=== PATIENT | female | born 1945 | race Caucasian/White ===

== ENCOUNTER 2020-06-10 19:29 | Inpatient (IN) | payer MEDICARE ==
[2020-06-10] MEDS ORDERED: Morphine 4 MG/ML VIAL ONE (20:32)
[2020-06-10] MEDS ORDERED: Ondansetron PF 4 MG/2 ML Vial ONE (20:32)
[2020-06-10 20:35] LABS: #Eosinphils 0.1 10x3/uL (0.0-0.5); #Monocytes 0.6 10x3/uL (0.0-1.1); #Neutrophils 5.6 10x3/uL (1.5-8.4); %Basophils 0.5 % (0.0-2.0); %Eosinophils 1.4 % (0.0-6.0); %Lymphocytes 19.4 % (18.0-47.0); %Monocytes 7.8 % (0.0-10.0); %Neutrophils 70.6 % (40.0-75.0); Hemoglobin 15.4 g/dL (12.0-15.5); Mean Corpuscular HGB CONC 34.2 g/dL (32.0-36.0); Mean Corpuscular Hemoglobin 31.4 pg (27.0-33.0); Mean Corpuscular Volume 91.6 fl (81.6-98.3); Mean Platelet Volume 9.8 fl (7.4-10.4); Platelet Count 177 10x3/uL (150-450); RBC Distribution Width 13.1 % (11.5-14.5); Red Blood Cell (RBC) Count 4.91 10x6/uL (3.90-5.03); White Blood Cell (WBC) Count 7.9 10x3/uL (3.5-10.5)
[2020-06-10 20:51] LABS: ALT (SGPT) 15 U/L (8-55); AST (SGOT) 16 U/L (5-34); Albumin 4.4 g/dL (3.4-4.8); Alkaline Phosphatase 74 U/L (40-110); Anion Gap 14 mmol/L (10-20); BUN (Urea Nitrogen) 23 mg/dL (9.8-20.1); Bilirubin, Total 0.5 mg/dL (0.2-1.2); Calc. Creatinine Clearance 0 mL/min (70-130); Calcium 9.7 mg/dL (7.8-10.44); Carbon Dioxide 27 mmol/L (23-31); Chloride 107 mmol/L (98-107); Globulin 2.3 g/dL (2.4-3.5); Glucose 118 mg/dL (83-110); Lipase 28 U/L (8-78); Potassium 3.8 mmol/L (3.5-5.1); Protein, Total 6.7 g/dL (5.8-8.1); Sodium 144 mmol/L (136-145)
[2020-06-10] MEDS ORDERED: Acetaminophen 325 MG TAB PO PRN (23:19)
[2020-06-10] MEDS ORDERED: Ondansetron PF 4 MG/2 ML Vial IVP PRN (23:19)
[2020-06-10] MEDS ORDERED: Morphine 4 MG/ML VIAL SLOW IVP PRN (23:21)
[2020-06-10] MEDS ORDERED: Potassium Chloride 20 MEQ in Lactated Ringer's 1,000 ML IV SCH (23:30)
[2020-06-10 23:53] VITALS: BMI 22.4
[2020-06-11] MEDS ORDERED: Morphine 2 MG/ML VIAL SLOW IVP PRN (00:05)
[2020-06-11] MEDS ORDERED: Potassium Chloride 20 MEQ in Premix Bag 1 BAG IVPB SCH (00:30)
[2020-06-11] MEDS ORDERED: Lactated Ringer's 1,000 ML IV SCH (00:30)
[2020-06-11 05:26] LABS: Anion Gap 10 mmol/L (10-20); BUN (Urea Nitrogen) 18 mg/dL (9.8-20.1); Calc. Creatinine Clearance 61 mL/min (70-130); Calcium 8.6 mg/dL (7.8-10.44); Carbon Dioxide 26 mmol/L (23-31); Chloride 110 mmol/L (98-107); Glucose 104 mg/dL (83-110); Potassium 4.1 mmol/L (3.5-5.1); Sodium 142 mmol/L (136-145)
[2020-06-11 05:37] LABS: #Eosinphils 0.1 10x3/uL (0.0-0.5); #Monocytes 0.5 10x3/uL (0.0-1.1); #Neutrophils 2.9 10x3/uL (1.5-8.4); %Basophils 0.8 % (0.0-2.0); %Eosinophils 1.8 % (0.0-6.0); %Lymphocytes 29.9 % (18.0-47.0); %Monocytes 10.4 % (0.0-10.0); %Neutrophils 56.7 % (40.0-75.0); Hemoglobin 13.4 g/dL (12.0-15.5); Mean Corpuscular HGB CONC 33.8 g/dL (32.0-36.0); Mean Corpuscular Hemoglobin 31.4 pg (27.0-33.0); Mean Platelet Volume 10.5 fl (7.4-10.4); Platelet Count 149 10x3/uL (150-450); RBC Distribution Width 13.5 % (11.5-14.5); Red Blood Cell (RBC) Count 4.27 10x6/uL (3.90-5.03); White Blood Cell (WBC) Count 5.1 10x3/uL (3.5-10.5)
[2020-06-11] MEDS: Levothyroxine Sodium 50 MCG TAB PO SCH (05:49)
[2020-06-11] MEDS ORDERED: Calcium Carbonate 500 MG ChewTAB PO PRN (08:14)
[2020-06-11] MEDS ORDERED: Sodium Chloride 0.65% Nasal 44 ML BOT EA NARE PRN (08:14)
[2020-06-11] MEDS ORDERED: Senokot S 8.6-50 MG TAB PO PRN (08:14)
[2020-06-11] MEDS ORDERED: hydrALAZINE 20 MG/ML VIAL SLOW IVP PRN (08:14)
[2020-06-11] MEDS ORDERED: Cepastat Lozenges 1 LOZ PO PRN (08:14)
[2020-06-11] MEDS ORDERED: Bisacodyl 5 MG TAB PO PRN (08:14)
[2020-06-11 08:53] LABS: Bilirubin Neg (Negative); Blood, Urine 10 (Negative); Clarity Slightly Cloudy (Clear); Glucose, Urine (Dipstick) Normal (Negative); Ketone, Urine Negative (Negative); Leukocyte Negative (Negative); Nitrite Negative (Negative); Protein, Urine (Dipstick) Negative (Neg-Trace); Urobilinogen Normal mg/dL (Less than 2)
[2020-06-11 09:07] LABS: Bacteria/HPF None Seen HPF (None Seen); RBC/HPF 0-3 HPF (0-3); Squamous Epithelial None Seen HPF (0-3); WBC/HPF None Seen HPF (0-3)
[2020-06-11] MEDS ORDERED: Potassium Chloride 20 MEQ in Lactated Ringer's 1,000 ML IV SCH (10:30)
[2020-06-11] MEDS: Aspirin 81 mg Enteric Coated Tablet PO SCH (10:38)
[2020-06-11] MEDS: Carvedilol 3.125 MG TAB PO SCH ×2 (10:40→17:35)
[2020-06-11] MEDS: Famotidine/PF 20 mg/2ml Vial SLOW IVP SCH ×2 (10:40→21:05)
[2020-06-11] MEDS: Enoxaparin Sodium 40 MG/0.4 ML SYRINGE SC SCH (10:40)
[2020-06-11] MEDS: Potassium Chloride 20 MEQ, Admixture Fee 1 EACH in Lactated Ringer's 1,000 ML IV SCH ×2 (11:30→21:54)
[2020-06-11 14:27] LABS: SARS-CoV-2 PCR by NAA Not Detected (NotDetected)
[2020-06-12] MEDS: Levothyroxine Sodium 50 MCG TAB PO SCH (06:08)
[2020-06-12 06:17] LABS: #Eosinphils 0.2 10x3/uL (0.0-0.5); #Monocytes 0.4 10x3/uL (0.0-1.1); #Neutrophils 2.3 10x3/uL (1.5-8.4); %Basophils 0.7 % (0.0-2.0); %Eosinophils 3.6 % (0.0-6.0); %Lymphocytes 35.8 % (18.0-47.0); %Monocytes 8.7 % (0.0-10.0); Hemoglobin 12.4 g/dL (12.0-15.5); Mean Corpuscular HGB CONC 33.4 g/dL (32.0-36.0); Mean Corpuscular Hemoglobin 31.9 pg (27.0-33.0); Mean Corpuscular Volume 95.4 fl (81.6-98.3); Mean Platelet Volume 9.9 fl (7.4-10.4); Platelet Count 126 10x3/uL (150-450); RBC Distribution Width 13.2 % (11.5-14.5); Red Blood Cell (RBC) Count 3.89 10x6/uL (3.90-5.03); White Blood Cell (WBC) Count 4.5 10x3/uL (3.5-10.5)
[2020-06-12 06:33] LABS: Lactic Acid 0.7 mmol/L (0.5-2.2)
[2020-06-12 06:45] LABS: ALT (SGPT) 10 U/L (8-55); AST (SGOT) 13 U/L (5-34); Albumin 3.3 g/dL (3.4-4.8); Alkaline Phosphatase 52 U/L (40-110); Anion Gap 11 mmol/L (10-20); BUN (Urea Nitrogen) 13 mg/dL (9.8-20.1); Bilirubin, Total 0.5 mg/dL (0.2-1.2); Calc. Creatinine Clearance 65 mL/min (70-130); Calcium 8.2 mg/dL (7.8-10.44); Carbon Dioxide 25 mmol/L (23-31); Chloride 110 mmol/L (98-107); Globulin 1.9 g/dL (2.4-3.5); Glucose 96 mg/dL (83-110); Magnesium 1.8 mg/dL (1.6-2.6); Phosphorus 2.2 mg/dL (2.3-4.7); Potassium 3.7 mmol/L (3.5-5.1); Protein, Total 5.2 g/dL (5.8-8.1); Sodium 142 mmol/L (136-145)
[2020-06-12] MEDS: Aspirin 81 mg Enteric Coated Tablet PO SCH (09:03)
[2020-06-12] MEDS: Enoxaparin Sodium 40 MG/0.4 ML SYRINGE SC SCH (09:03)
[2020-06-12] MEDS: Carvedilol 3.125 MG TAB PO SCH (09:03)
[2020-06-12] MEDS: Famotidine/PF 20 mg/2ml Vial SLOW IVP SCH (09:03)
[2020-06-12 13:40] VITALS: BP 125/76; TEMP 98.6
== END 2020-06-12 15:30 | disposition home or self-care (01) | DRG 390 ==
LOC: CSHERS 19:29 → CSHTELE 23:47
PROVIDERS: ADMIT Student in an Organized Health Care Education/Training Program; ATTEND Family Medicine
DX: K56.600 Partial intestinal obstruction, unspecified as to cause (principal); I10 Essential (primary) hypertension; E78.5 Hyperlipidemia, unspecified; E03.9 Hypothyroidism, unspecified; Z20.822 Contact with and (suspected) exposure to COVID-19; I25.10 Atherosclerotic heart disease of native coronary artery without angina pectoris; Z95.5 Presence of coronary angioplasty implant and graft; Z98.51 Tubal ligation status; Z82.49 Family history of ischemic heart disease and other diseases of the circulatory system; Z79.01 Long term (current) use of anticoagulants; Z79.82 Long term (current) use of aspirin; Z79.890 Hormone replacement therapy; Z79.891 Long term (current) use of opiate analgesic; E86.0 Dehydration; K80.20 Calculus of gallbladder without cholecystitis without obstruction; K52.9 Noninfective gastroenteritis and colitis, unspecified; N19 Unspecified kidney failure
CPT/HCPCS: 74177; 74250; 76705; 80048; 80053; 81001; 83605; 83690; 83735; 84100; 84443; 84484; 85025; 87635; 93005; 96374; 96375; J1650; J2270; J2405; J3480; J7120; S0028; U0003; U0005